=== PATIENT | female | born 1995 | race Caucasian/White ===

== ENCOUNTER 2016-05-01 23:36 | Emergency (ER) | payer BC ==
[~2016-05-01] VITALS: Ht 167.6 cm; Wt 54.5 kg
[2016-05-01 23:42] VITALS: TEMP 98.2
[2016-05-01] MEDS ORDERED: MIRENA52 MG (23:42)
[2016-05-02 00:43] LABS: BASO # 0.1 (0.0-0.2); BASO % 0.5 % (0.0-2.0); EOS # 0.2 (0.0-0.7); EOS % 1.7 % (0-4.0); GRAN % 48.3 % (42.2-75.2); HEMATOCRIT 41.6 % (35.0-45.0); LYMPH # 4.2 (1.2-3.4); LYMPH % 40.5 % (20.0-51.0); MEAN CELL VOLUME 91 fl (80.0-95.0); MEAN CORPUSCULAR HEMOGLOBIN 31 pg (26.0-32.0); MEAN CORPUSCULAR HGB CONC 34 g/dl (33.0-37.0); MEAN PLATELET VOLUME 9.1 fl (7.4-10.4); MONO # 0.9 (0.1-0.6); MONO % 8.7 % (1.7-9.3); PLATELET COUNT 344 K/mm3 (130-400); RED BLOOD COUNT 4.59 M/mm3 (4.10-5.30); REDCELL DISTRIBUTION WIDTH-CV 12.2 % (11.5-14.5); WHITE BLOOD COUNT 10.4 K/mm3 (4.8-10.8)
[2016-05-02 00:58] LABS: ADJUSTED CALCIUM 9.1 mg/dL (8.4-10.2); ALANINE AMINOTRANSFERASE 79 U/L (9-52); ALBUMIN 4.9 gm/dL (3.5-5.0); ALKALINE PHOSPHATASE 76 U/L (50-136); ANION GAP 15 mmol/L (7-16); BILIRUBIN,TOTAL 0.6 mg/dL (0.0-1.0); BLOOD UREA NITROGEN 13 mg/dL (7-17); CALCIUM 9.8 mg/dL (8.4-10.2); CARBON DIOXIDE 27 mmol/L (22-30); CHLORIDE 99 mmol/L (98-107); CREATININE, serum 0.69 mg/dL (0.52-1.25); GLUCOSE 122 mg/dL (74-106); POTASSIUM 3.4 mmol/L (3.4-5.0); SODIUM 142 mmol/L (137-145); TOTAL PROTEIN 8.8 gm/dL (6.4-8.2)
[2016-05-02 01:00] LABS: C-REACTIVE PROTEIN < 0.5 mg/dL (0.0-0.9)
[2016-05-02 01:16] LABS: PH 6 (5-8); SQUAMOUS EPITHELIAL 0-2 /hpf; URINE APPEARANCE Clear; URINE BACTERIA None Seen /hpf; URINE BILIRUBIN Negative (NEGATIVE); URINE BLOOD Negative (NEGATIVE); URINE COLOR Yellow; URINE GLUCOSE Negative (NEGATIVE); URINE KETONE Negative (NEGATIVE); URINE UROBILINOGEN Negative (NEGATIVE); URINE WBC 0-2 /hpf
[2016-05-02 01:21] LABS: URINE RBC 0-2 /hpf
[2016-05-02 02:31] VITALS: BP 118/88; PULSE 109
[2016-05-03] MEDS ORDERED: ZOFRAN 4MG T4 MG/TAB PO (13:49)
[2016-05-03] MEDS ORDERED: PERCOCET 325 MG1 TA2 PO (13:49)
== END 2016-05-02 02:33 | disposition home or self-care (01) ==
LOC: COL.ER 23:36 → EDBD 23:50 → COL.ER 05-02 02:33
PROVIDERS: Nurse Practitioner
DX: N83.201 Unspecified ovarian cyst, right side (principal); Z97.5 Presence of (intrauterine) contraceptive device
CPT/HCPCS: J2270; J2405; J7030; Q9967

== ENCOUNTER 2016-05-03 09:14 | Emergency (ER) | payer BC ==
[~2016-05-03] VITALS: Ht 167.6 cm; Wt 54.5 kg
[~2016-05-03 09:14] MED LIST: MIRENA52 MG
[2016-05-03 09:31] VITALS: TEMP 99.3
[2016-05-03 10:24] LABS: BASO # 0.1 (0.0-0.2); BASO % 0.5 % (0.0-2.0); EOS % 0.4 % (0-4.0); GRAN # 7.7 (1.4-6.5); HEMATOCRIT 42.5 % (35.0-45.0); HEMOGLOBIN 14.2 g/dl (12.0-15.0); LYMPH # 1.4 (1.2-3.4); LYMPH % 13.8 % (20.0-51.0); MEAN CELL VOLUME 92 fl (80.0-95.0); MEAN CORPUSCULAR HEMOGLOBIN 31 pg (26.0-32.0); MEAN CORPUSCULAR HGB CONC 33 g/dl (33.0-37.0); MEAN PLATELET VOLUME 8.9 fl (7.4-10.4); MONO # 0.7 (0.1-0.6); MONO % 7.1 % (1.7-9.3); PLATELET COUNT 343 K/mm3 (130-400); RED BLOOD COUNT 4.64 M/mm3 (4.10-5.30); REDCELL DISTRIBUTION WIDTH-CV 12.2 % (11.5-14.5); WHITE BLOOD COUNT 9.9 K/mm3 (4.8-10.8)
[2016-05-03 10:40] LABS: ADJUSTED CALCIUM 9.3 mg/dL (8.4-10.2); ALANINE AMINOTRANSFERASE 62 U/L (9-52); ALBUMIN 5.1 gm/dL (3.5-5.0); ALKALINE PHOSPHATASE 80 U/L (50-136); ANION GAP 15 mmol/L (7-16); BILIRUBIN,TOTAL 0.8 mg/dL (0.0-1.0); BLOOD UREA NITROGEN 9 mg/dL (7-17); CALCIUM 10.2 mg/dL (8.4-10.2); CARBON DIOXIDE 28 mmol/L (22-30); CHLORIDE 99 mmol/L (98-107); CREATININE, serum 0.71 mg/dL (0.52-1.25); GLUCOSE 83 mg/dL (74-106); POTASSIUM 4.1 mmol/L (3.4-5.0); SODIUM 142 mmol/L (137-145); TOTAL PROTEIN 8.9 gm/dL (6.4-8.2)
[2016-05-03 10:48] LABS: C-REACTIVE PROTEIN < 0.5 mg/dL (0.0-0.9)
[2016-05-03 11:16] LABS: PH 5 (5-8); URINE APPEARANCE Hazy; URINE BACTERIA Rare /hpf; URINE BILIRUBIN Negative (NEGATIVE); URINE BLOOD Negative (NEGATIVE); URINE COLOR Yellow; URINE GLUCOSE Negative (NEGATIVE); URINE KETONE 1+ (NEGATIVE); URINE RBC 0-2 /hpf; URINE UROBILINOGEN Negative (NEGATIVE)
[2016-05-03] MEDS ORDERED: ZOFRAN 4MG T4 MG/TAB PO (13:49)
[2016-05-03] MEDS ORDERED: PERCOCET 325 MG1 TA2 PO (13:49)
[2016-05-03 14:10] VITALS: BP 106/74; PULSE 88
[2016-05-03 15:12] LABS: CHLAMYDIA/TRACH by PCR Female Not Detected; NEISSERIA GON by PCR Female Not Detected
== END 2016-05-03 14:10 | disposition home or self-care (01) ==
LOC: COL.ER 09:14 → EDBD 09:37 → COL.ER 09:37
PROVIDERS: Emergency Medicine
DX: N83.201 Unspecified ovarian cyst, right side (principal); R10.31 Right lower quadrant pain; R10.2 Pelvic and perineal pain
CPT/HCPCS: J1170; J1885; J2405; J7030; Q9967

== ENCOUNTER → 2016-07-29 | Outpatient (REF) ==
[~2016-07-29] MED LIST changes: +PERCOCET 325 MG1 TA2 PO; +ZOFRAN 4MG T4 MG/TAB PO
== END ==
LOC: WSOH 14:00
DX: Z02.89 Encounter for other administrative examinations (principal)